=== PATIENT | male | born 1990 ===

== ENCOUNTER 2019-11-16 17:58 | Emergency (ER) | payer SELFPAY ==
--- NOTE | 2019-11-16 18:35 | Event Note ---
ED Screening Note Date of service: 11/16/19 Time: 18:32 ED Screening Note: 29 yo male states he smoked meth today for this first time and thing went left. He admits to having SI/HI thoughts all the time. This initial assessment/diagnostic orders/clinical plan/treatment(s) is/are subject to change based on patients health status, clinical progression and re- assessment by fellow clinical providers in the ED. Further treatment and workup at subsequent clinical providers discretion. Patient/guardian urged not to elope from the ED as their condition may be serious if not clinically assessed and managed. Initial orders include: Medical clearance
--- NOTE | 2019-11-16 19:28 | Emergency Department Report ---
<KENNA HWANG - Last Filed: 11/16/19 19:25> ED Psych HPI - General Chief Complaint: Psych Stated Complaint: INGESTION Time Seen by Provider: 11/16/19 19:06 Source: patient, EMS Mode of arrival: Ambulatory Limitations: No Limitations - History of Present Illness Initial Comments: 29-year-old male presents to the hospital complaining of "wigging out" smoking methamphetamines for the first time. Patient also smokes marijuana. He uses both drugs one hour prior to arrival. He states that he is having hallucinations body is feeling funny like he can't sit still. Pt states the feeling has started to calm down. Patient states he is feeling suicidal earlier with history of 1 previous attempt in the past but denies feeling suicidal at this time. - Related Data Home Medications Medication Instructions Recorded Confirmed Last Taken No Known Home Medications [No 08/01/15 08/01/15 Unknown Reported Home Medications] Allergies Allergy/AdvReac Type Severity Reaction Status Date / Time No Known Allergies Allergy Unverified 08/01/15 21:32 ED Review of Systems Comment: All other systems reviewed and negative ED Past Medical Hx - Past Medical History Previous Medical History?: No - Surgical History Past Surgical History?: No - Social History Smoking Status: Current Every Day Smoker Substance Use Type: Marijuana, Methamphetamines - Medications Home Medications: Home Medications Medication Instructions Recorded Confirmed Last Taken Type No Known Home Medications [No 08/01/15 08/01/15 Unknown History Reported Home Medications] ED Physical Exam - General Limitations: No Limitations - Other Other exam information: General: No acute distress Head: Atraumatic Eyes: normal appearance ENT: Moist mucous membranes Neck: Normal appearance, no midline tenderness Chest: Clear to auscultation bilaterally CV: Regular rate and rhythm Abdomen: Soft, normal bowel sounds, nontender, nondistended, no rebound or guarding Back: Normal inspection Extremity: Normal inspection infection, full range of motion Neuro: Alert O x 3, no facial asymmetry, speech clear, no gross motor sensory deficit Psych: Appropriate behavior Skin: No rash ED Medical Decision Making - Medical Decision Making pych hold ordered. pt under the influence and will need obs and reassessment for suicide intent. - Differential Diagnosis drug abuse, suicidal ideation, psychosis ED Disposition Clinical Impression: Amphetamine intoxication Qualifiers: Complication of substance-induced condition: with delirium Qualified Code(s): F15.921 - Other stimulant use, unspecified with intoxication delirium Disposition: DC-01 TO HOME OR SELFCARE Condition: Stable Instructions: Methamphetamine Abuse (ED) <ANA BEYER - Last Filed: 11/17/19 12:33> ED Review of Systems ROS: Stated complaint: INGESTION Other details as noted in HPI ED Course Vital Signs 11/16/19 11/16/19 11/17/19 18:07 20:15 02:05 Temperature 97.6 F 98.3 F 98.6 F Pulse Rate 83 77 92 H Respiratory 20 16 18 Rate Blood Pressure 135/88 146/87 122/75 [Right] O2 Sat by Pulse 99 98 100 Oximetry 11/17/19 07:00 Temperature 98.9 F Pulse Rate 79 Respiratory 18 Rate Blood Pressure 138/68 [Right] O2 Sat by Pulse 95 Oximetry - Reevaluation(s) Reevaluation #1: 11/17/19 12:30 Patient was seen by mental health assesses this morning. Patient does admit to using his supply of amphetamines before selling it and states he was "tripping". Patient is no longer exhibiting any signs was recommended that the patient be discharged home with outpatient follow-up. ED Medical Decision Making - Lab Data Result diagrams: 11/16/19 19:09 11/17/19 04:27 Critical care attestation.: If time is entered above; I have spent that time in minutes in the direct care of this critically ill patient, excluding procedure time. ED Disposition Is pt being admited?: No Does the pt Need Aspirin: No Time of Disposition: 12:32
[2019-11-16 19:40] LABS: Basophils # (Auto) 0.1 K/mm3 (0.0-0.1); Basophils % (Auto) 0.7 % (0.0-1.8); Eosinophils % (Auto) 0.1 % (0.0-4.3); Hematocrit 50.1 % (35.5-45.6); Hemoglobin 16.3 gm/dl (11.8-15.2); Lymphocytes # (Auto) 0.9 K/mm3 (1.2-5.4); Lymphocytes % (Auto) 12.3 % (13.4-35.0); Mean Corpuscular HGB Conc 33 % (32-34); Mean Corpuscular Volume 83 fl (84-94); Monocytes # (Auto) 0.9 K/mm3 (0.0-0.8); Monocytes % (Auto) 12.6 % (0.0-7.3); Platelet Count 215 K/mm3 (140-440); Red Blood Count 6.06 M/mm3 (3.65-5.03); Red Cell Distribution Width 14.9 % (13.2-15.2)
[2019-11-16 19:54] LABS: Bilirubin,Urine NEG (Negative); Color,Urine Straw (Yellow)
[2019-11-16 19:55] LABS: Blood,Urine NEG (Negative); Protein,Urine <15 mg/dL mg/dL (Negative); Urobilinogen,Urine < 2.0 mg/dL (<2.0)
[2019-11-16 20:06] LABS: Benzodiazepines Screen,Urine PRESUMPTIVE NEGATIVE; Cocaine Screen,Urine PRESUMPTIVE NEGATIVE; Methadone Screen,Urine PRESUMPTIVE NEGATIVE; Opiate Screen,Urine PRESUMPTIVE NEGATIVE
[2019-11-16 20:27] LABS: Amphetamine Screen,Urine PRESUMPTIVE POSITIVE; Cannabinoid Screen,Urine PRESUMPTIVE POSITIVE
[2019-11-16 20:39] LABS: BUN/Creatinine Ratio 12; Blood Urea Nitrogen 11 mg/dL (9-20); Calcium 10.3 mg/dL (8.4-10.2); Hemolysis Index 40
[2019-11-16] MEDS ORDERED: D5W/0.9% NACL 1,000 ML IV SCH (23:00)
[2019-11-17 05:07] LABS: BUN/Creatinine Ratio 13; Blood Urea Nitrogen 12 mg/dL (9-20); Calcium 9.7 mg/dL (8.4-10.2); Hemolysis Index 6
[2019-11-17 08:20] VITALS: BP 138/68
== END 2019-11-17 14:15 | disposition home or self-care (01) ==
LOC: ED 17:58
DX: F15.929 Other stimulant use, unspecified with intoxication, unspecified (principal); F12.10 Cannabis abuse, uncomplicated; F17.200 Nicotine dependence, unspecified, uncomplicated
CPT/HCPCS: 36415; 80048; 80307; 80320; 81001; 82550; 85025; G0480